=== PATIENT | female | born 1950 | race Caucasian/White ===

== ENCOUNTER 2021-06-10 13:27 | Outpatient (CLI) | payer MEDICARE ==
[2021-06-11 00:46] LABS: SARS-CoV-2 PCR by NAA Not Detected (NotDetected)
== END 2021-06-10 13:28 | disposition home or self-care (01) ==
LOC: LABBT 13:27
PROVIDERS: ATTEND Ophthalmology Retina Specialist
DX: Z01.812 Encounter for preprocedural laboratory examination (principal); Z20.822 Contact with and (suspected) exposure to COVID-19
CPT/HCPCS: U0003; U0005

== ENCOUNTER 2021-06-12 06:28 | Day surgery (SDC) | payer MEDICARE ==
[2021-06-10 14:36] VITALS: BMI 21.4
[~2021-06-12 06:28] MED LIST: EPINEPHrine 0.3 MG in Ophthalmic Irrigation Solution 500 ML IRR SCH
[2021-06-12] MEDS ORDERED: Midazolam HCl 2 mg/2 ml Vial ONE (06:30)
[2021-06-12] MEDS ORDERED: Fentanyl 100 MCG/2 ML VIAL ONE (06:30)
[2021-06-12] MEDS ORDERED: Phenylephrine 2.5% Ophth Soln 5 ML BOT ONE (06:42)
[2021-06-12] MEDS ORDERED: Cyclopentolate 1% Opth Drop 2 ML BOT ONE (06:42)
[2021-06-12] MEDS ORDERED: PROPOFOL 200 MG/20 ML VIAL ONE (08:06)
[2021-06-12] MEDS ORDERED: Lidocaine 1% PF 5 ML VIAL ONE (08:06)
[2021-06-12] MEDS ORDERED: Bupivacaine PF 0.75% SDV 10 ML ONE (08:06)
[2021-06-12] MEDS ORDERED: Maxitrol 0.1% Opth Oint 3.5 GM TUBE ONE (08:06)
[2021-06-12] MEDS ORDERED: Lidocaine 4% PF 5 ML AMP ONE (08:06)
[2021-06-12] MEDS ORDERED: Triamcinolone 40 MG/ML VIAL ONE (08:06)
[2021-06-12] MEDS ORDERED: CEFAZOLIN 1 GM VIAL ONE (08:06)
== END 2021-06-12 09:48 | disposition home or self-care (01) ==
LOC: SDC 06:28
PROVIDERS: ATTEND Ophthalmology Retina Specialist
PROC: 08T53ZZ Resection of Left Vitreous, Percutaneous Approach (ICD-10-PCS; principal; 2021-06-12)
PROC: 08NF3ZZ Release Left Retina, Percutaneous Approach (ICD-10-PCS; 2021-06-12)
DX: H43.12 Vitreous hemorrhage, left eye (principal)
CPT/HCPCS: J0171; J0690; J2250; J2704; J3010; J3301; J3490